=== PATIENT | female | born 1955 | race Hispanic/Latino ===

== ENCOUNTER 2017-06-23 11:11 | Inpatient (IN) | payer MEDICARE ==
[2017-06-23 13:19] LABS: BASO # 0.1 K/uL (0.0-0.2); BASO % 1.4 % (0.0-2.0); EOS # 0.1 K/uL (0.0-0.7); EOS % 1.3 % (0.0-4.0); HEMOGLOBIN 12.7 g/dL (11.0-16.0); LYMPH # 2.2 K/uL (1.0-4.3); LYMPH % 37.8 % (20.0-40.0); MEAN CELL VOLUME 81.8 fL (81.0-99.0); MEAN CORPUSCULAR HEMOGLOBIN 28.3 pg (27.0-31.0); MEAN CORPUSCULAR HGB CONC 34.7 g/dL (33.0-37.0); MEAN PLATELET VOLUME 8.6 fL (7.2-11.7); MONO # 0.6 K/uL (0.0-0.8); MONO % 10.8 % (0.0-10.0); NEUT # 2.9 K/uL (1.8-7.0); NEUT % 48.7 % (50.0-75.0); NRBC % 0.1 % (0.0-2.0); RBC 4.47 Mil/uL (3.80-5.20); WHITE BLOOD COUNT 5.9 K/uL (4.8-10.8)
[2017-06-23 13:32] LABS: URINE BACTERIA RARE (<OCC); URINE BILIRUBIN NEGATIVE (NEGATIVE); URINE BLOOD NEGATIVE (NEGATIVE); URINE CLARITY Clear (Clear); URINE COLOR Yellow (YELLOW); URINE GLUCOSE (UA) NORMAL (Normal); URINE LEUKOCYTE ESTERASE NEG Leu/uL (Negative); URINE NITRATE NEGATIVE (NEGATIVE); URINE PROTEIN NEGATIVE (NEGATIVE); URINE UROBILINOGEN NORMAL mg/dL (0.2-1.0)
[2017-06-23 13:47] LABS: ALBUMIN 3.7 g/dL (3.5-5.0); ALT/SGPT 82 U/L (9-52); AST/SGOT 78 U/L (14-36); BLOOD UREA NITROGEN 7 mg/dL (7-17); CALCIUM 8.6 mg/dl (8.6-10.4); GFR AFRICAN-AMERICAN > 60; GFR NON-AFRICAN AMERICAN > 60
--- NOTE | 2017-06-23 13:48 | C.PDOC ---
History Of Present Illness 62 y/o female with hx hiv and hepatitis, not on HAART for approx last year, comes to ED for detox from heroin and benzodiazepines. pt denies any physical complaints at this time. Time Seen by Provider: 06/23/17 12:39 Chief Complaint (Nursing): Substance Abuse History Per: Patient History/Exam Limitations: no limitations Suicide/Self Injury Attempted (Context): None Modifying Factor(s): Narcotics Severity: Mild Past Medical History Reviewed: Historical Data, Nursing Documentation, Vital Signs Vital Signs: Last Vital Signs Temp 98.6 F 06/23/17 15:51 Pulse 78 06/23/17 15:51 Resp 18 06/23/17 15:51 BP 128/62 06/23/17 15:51 Pulse Ox 99 06/23/17 19:13 - Medical History PMH: Hepatitis, HIV Denies: Diabetes, HTN, Seizures, Sexually Transmitted Disease Family History: States: Unknown Family Hx - Social History Hx Alcohol Use: No Hx Substance Use: Yes - Immunization History Hx Tetanus Toxoid Vaccination: No Hx Influenza Vaccination: No Hx Pneumococcal Vaccination: No Review Of Systems Constitutional: Negative for: Fever, Chills Cardiovascular: Negative for: Chest Pain Respiratory: Negative for: Cough, Shortness of Breath Gastrointestinal: Negative for: Abdominal Pain Neurological: Negative for: Weakness, Numbness, Headache Physical Exam - Physical Exam Appears: Non-toxic, No Acute Distress Skin: Warm, Dry Head: Atraumatic, Normacephalic Chest: No Deformity, No Tenderness Cardiovascular: Rhythm Regular, No Murmur Respiratory: No Decreased Breath Sounds, No Wheezing Gastrointestinal/Abdominal: Soft, No Tenderness Extremity: No Pedal Edema, No Calf Tenderness Neurological/Psych: Oriented x3, Normal Speech, Normal Cognition ED Course And Treatment - Laboratory Results Result Diagrams: 06/23/17 13:14 06/23/17 18:28 ECG: Interpreted By Me, Viewed By Me ECG Rhythm: Sinus Rhythm, L BBB Rate From EC O2 Sat by Pulse Oximetry: 99 (RA) Pulse Ox Interpretation: Normal Medical Decision Making Medical Decision Making: pt here for detox, has been pre-screened. hx hiv- non compliant with medications for about one year- recommend inpatient medicine and/or infectious disease consult to eval her hiv and re-start on HAART and elevated lft/ hepatitis. pt with decreased potassium of 2.9, po dose given, no acute ekg changes noted. . 647 pm pt has been given 2 doses of po potassium, repeat level is 4.4. pt is now medically cleared for detox admission. Disposition Discussed With .: Ellie Cordon Doctor Will See Patient In The: Hospital - Disposition Disposition Time: 18:48 Condition: STABLE - Clinical Impression Clinical Impression: Opioid dependence
[2017-06-23] MEDS ORDERED: Potassium Chloride 20 mEq/15 ml LIQ UD PO STA ×2 (13:54→17:06)
[2017-06-23 13:59] LABS: BARBITURATES, UR NEGATIVE (NEGATIVE); PHENCYCLIDINE, UR NEGATIVE (NEGATIVE)
[2017-06-23] MEDS ORDERED: Potassium Chloride 20 mEq/15 ml LIQ UD ONE (14:16)
[2017-06-23 14:19] LABS: BENZODIAZEPINES, UR POSITIVE (NEGATIVE); OPIATES, UR POSITIVE (NEGATIVE)
--- NOTE | 2017-06-23 19:08 | PCM.BM ---
<RyanIsadora - Last Filed: 06/23/17 19:06> Treatment Plan Problems - Problems identified on initial assessmt Potential for benzo withdrawal Date Initiated: 06/23/17 Time Initiated: 19:07 Assessment reference: NA Status: Active Priority: 1 Potential for opiate withdrawal Date Initiated: 06/23/17 Time Initiated: 19:07 Assessment reference: NA Status: Active Priority: 2 Treatment assets and liabiliti Patient Assests: ADL independent, negotiates basic needs, cognitively intact Patient Liabilities: substance abuse (opiates, benzo) - Milieu Protocol Maintain good personal hygiene: daily Encourage regular showers, daily Remind patient to perform daily oral care, daily Assist patient to perform ADL's Conduct patient checks and document Observation sheet: Q15 minutes Maintain personal safety: every shift Educate patient to report safety concerns to staff, every shift Monitor environment for contraband/sharps Medication safety: Monitor for expected outcome, potential side effects: every shift, Assess barriers to learning: every shift, Assess readiness for medication education: every shift <Ellie Cordon - Last Filed: 06/24/17 22:36> - Diagnosis (1) Opioid dependence Status: Acute Interventions: 06/24/17 22:37 * Assess 7x/week regarding severity of withdrawal * Educate regarding risks, benefits, side effects and alternatives of medications * Use Motivational Interviewing for abstinence * Use CBT for relapse prevention * Medication management for withdrawal symptoms * Encourage medication assisted treatment * <Mabel Souza - Last Filed: 06/25/17 11:29> Family Contact Family involvement: Famliy/SO not involved Family contact: Patient declines to allow family contact at present - Goals for Treatment Patient goals for treatment: complete detox and transition to IOP. Discharge/Continuing Care - Education Needs Education Needs: Patient Medication, Patient Diagnosis/Disease Process, Patient Coping Skills, Patient Anger Management skills, Patient Placement options, Patient Community resources - Discharge Discharge Criteria: No longer exhibiting s/s of withdrawal, Reduction of target symptoms Discharge to:: Home - Treatment Team Participation Patient/Family/SO Statement: 06/25/17 11:28 "I wanna go to IOP after here..." Discussed with Family/SO: No Was Patient/Family/SO present at Treatment Team Meeting: Yes
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
[2017-06-24] MEDS ORDERED: Buprenorphine Hydrochloride 2 mg SL ONE ×2 (11:49→13:02)
--- NOTE | 2017-06-25 08:42 | PCM.PYCHPN ---
Psychiatric Progress Note - Psychiatric Progress Note Patient Chief Complaint: feeling okay Problems Identified/Issues Discussed: The pt is seen, chart reviewed, case discussed with staff. The pt is compliant with medications and reports no side-effects. Symptoms are improving but needs more time to stabilize. After care discussed, support and psychoeducation given. Mental Status Examination - Cognitive Function Orientation: Person, Place, Situation, Time - Mood Mood: Depressed, Anxious - Affect Affect: Constricted - Formal Thought Process Formal Thought Process: No Impairment Goal/Treatment Plan - Goal/Treatment Plan Progress Toward Problem(s) and Goals/Treatment Plan: Opioid use d/o -severe Opioid withdrawal -Subutex detox -As needed medications -Gabapentin for augmentation -All risks, benefits and alternatives of medications, including no medications, discussed and the patient understood and agreed. -Attend groups and activities -Supportive therapy and psychoeducation -CO for abstinence -CBT for relapse prevention -Encourage MAT -Refer to rehab or IOP -Attend self-help groups as well Major depressive d/o - recurrent -Lexapro -Attend groups and activities -Psychoeducation and support daily DW Dr. Cordon, Elizabeth Maldonado DO, PGY-1
[2017-06-25] MEDS: Buprenorphine Hydrochloride 2 mg SL SCH (09:12)
--- NOTE | 2017-06-25 12:08 | CARD ---
APPROVED REPORT EKG Measurement Heart [id number] <Conclusion> Normal sinus rhythm Left bundle branch block Abnormal ECG
[2017-06-26] MEDS: Buprenorphine Hydrochloride 2 mg SL SCH (09:07)
--- NOTE | 2017-06-26 11:09 | PCM.PYCHPN ---
Psychiatric Progress Note - Psychiatric Progress Note Patient Chief Complaint: feeling okay Problems Identified/Issues Discussed: The pt is seen, chart reviewed, case discussed with staff. The pt is compliant with medications and reports no side-effects. Symptoms are improving but needs more time to stabilize. After care discussed, support and psychoeducation given. Plan for [facility]. Mental Status Examination - Cognitive Function Orientation: Person, Place, Situation, Time - Mood Mood: Depressed, Anxious - Affect Affect: Constricted - Formal Thought Process Formal Thought Process: No Impairment Goal/Treatment Plan - Goal/Treatment Plan Progress Toward Problem(s) and Goals/Treatment Plan: Opioid use d/o -severe Opioid withdrawal -Subutex detox -As needed medications -Gabapentin for augmentation -All risks, benefits and alternatives of medications, including no medications, discussed and the patient understood and agreed. -Attend groups and activities -Supportive therapy and psychoeducation -[place] for abstinence -CBT for relapse prevention -Encourage MAT -Refer to rehab or IOP -Attend self-help groups as well Major depressive d/o - recurrent -Lexapro -Attend groups and activities -Psychoeducation and support daily DW Dr. Cordon, Elizabeth Maldonado DO, PGY-1
[2017-06-27] MEDS: Buprenorphine Hydrochloride 2 mg SL SCH (09:03)
--- NOTE | 2017-06-27 13:25 | PCM.PYCHPN ---
Psychiatric Progress Note - Psychiatric Progress Note Patient seen today, length of contact: 15min Patient Chief Complaint: "Better" Problems Identified/Issues Discussed: The pt is seen, chart reviewed, case discussed with staff. Support given, CBT and CA used briefly No new symptoms reported, improving slowly and needs more time No SEs from medications, risks discussed. After care discussed Medication Change: Yes (detox changes daily) Medical Record Reviewed: Yes Mental Status Examination - Cognitive Function Orientation: Person, Place, Situation, Time Memory: Intact Attention: WNL Concentration: WNL Association: WNL Fund of Knowledge: WN - Mood Mood: Depressed, Anxious - Affect Affect: Constricted - Speech Speech: Appropriate - Formal Thought Process Formal Thought Process: No Impairment - Suicidal Ideation Suicidal Ideation: No - Homicidal Ideation Homicidal Ideation: No Goal/Treatment Plan - Goal/Treatment Plan Need for Continued Stay: Discharge may exacerbated symptoms, Severe functional impairment Progress Toward Problem(s) and Goals/Treatment Plan: Subutex detox Lexapro for depression As needed medications Gabapentin for augmentation All risks, benefits and alternatives of medications, including no medications, discussed and the patient understood and agreed. Attend groups and activities Supportive therapy and psychoeducation CA for abstinence CBT for relapse prevention Encourage MAT Refer to rehab or IOP Attend self-help groups as well
[2017-06-28 06:28] VITALS: RESP 18
[2017-06-28] MEDS: Buprenorphine Hydrochloride 2 mg SL SCH (09:03)
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
[2017-06-28 09:57] VITALS: BP 119/76; PULSE 77; TEMP 97.4; O2SAT 98
== END 2017-06-28 09:50 | disposition home or self-care (01) | DRG 897 ==
LOC: C.ER 11:11 → C.7D 18:45
PROVIDERS: ADMIT Psychiatry & Neurology Psychiatry; ATTEND Psychiatry & Neurology Psychiatry
PROC: HZ2ZZZZ Detoxification Services for Substance Abuse Treatment (ICD-10-PCS; principal; 2017-06-23)
DX: F11.23 Opioid dependence with withdrawal (principal); F33.9 Major depressive disorder, recurrent, unspecified; I10 Essential (primary) hypertension; Z91.19 Patient's noncompliance with other medical treatment and regimen; F19.10 Other psychoactive substance abuse, uncomplicated